=== PATIENT | female | born 1955 | race Caucasian/White ===

== ENCOUNTER 2024-11-11 05:12 | Day surgery (SDC) | payer OTHER ==
[2024-11-04 08:56] VITALS: BP 140/82
[2024-11-04 09:10] LABS: URINE APPEARANCE Clear; URINE BILIRRUBIN Negative (NEGATIVE); URINE BLOOD Negative; URINE COLOR Yellow; URINE GLUCOSE Negative (NEGATIVE); URINE KETONE Trace (NEGATIVE); URINE LEUKOCYTE Trace; URINE NITRATE Negative; URINE PROTEIN Negative (NEGATIVE); URINE UROBILINOGEN 1.0 E.U./dl
[2024-11-04 09:11] LABS: URINE BACTERIA 78.3 uL (0.0-1933); URINE EPITHELIAL CELLS 15.9 uL (0.0-38.8); URINE WBC 8.7 uL (0.0-23.2)
[2024-11-04 09:18] LABS: BASO % 0.5 % (0.1-1.2); EOS # 0.25 (0.04-0.54); EOS % 3.9 % (0.7-7.0); LYMPH # 2.11 (1.18-3.74); LYMPH % 33.3 % (19.3-53.1); MEAN PLATELET VOLUME 10.10 fl (9.4-12.4); MONO # 0.51 (0.24-0.82); MONO % 8.0 % (4.7-12.5); NEUT # 3.43 (1.56-6.13); NEUT % 54.1 % (34.0-71.1); RED CELL DISTRIBUTION WIDTH 14.2 % (11.6-14.4)
[2024-11-04 09:24] LABS: URINE CAST 0.14 uL (0.0-1.40); URINE RBC 1.7 uL (0.0-20.8)
[2024-11-04 09:34] LABS: INR 1.01
[2024-11-04 09:59] LABS: ALT/SGPT 24.0 U/L (12-78); AST/SGOT 17.0 U/L (15-37); BILIRUBIN TOTAL 0.76 mg/dL (0.3-1.2); BUN CREA RATIO 22.0 (7.0-25.0); CREATININE SERUM 0.73 mg/dL (0.55-1.02); GFR 79.52; GLOBULINA 3.0 G/DL (2.4-3.5); GLUCOSE FASTING 99.0 mg/dL (65-100); OSMOLALITY SERUM 294.0 MOSM/KG (275-295)
[~2024-11-11] VITALS: Ht 154.9 cm; Wt 65.8 kg
[~2024-11-11 05:12] MED LIST: COZAAR25 MG PO; DEXILANT60 MG PO; ECOTRIN81 MG; PEPCID40 MG PO; PRESERVISION A1 EAC1 PO; SIMVASTATIN80 MG; TOPROL XL50 M1 PO
[2024-11-11] MEDS ORDERED: MEPERIDINE HCL/PF 25 MG/ML VIAL IM PRN (08:30)
[2024-11-11] MEDS ORDERED: PROMETHAZINE HCL 25 MG/ML AMPUL IM PRN (08:30)
[2024-11-11] MEDS ORDERED: DUI500 PO (08:33)
[2024-11-11] MEDS ORDERED: TRAM1TAB98 PO (08:34)
[2024-11-11] MEDS ORDERED: CEFADROXIL 500 MG CAPSULE PO SCH (09:00)
== END 2024-11-11 12:45 | disposition home or self-care (01) ==
LOC: CIR.AMB 05:12
PROVIDERS: ATTEND Orthopaedic Surgery Sports Medicine
DX: M23.221 Derangement of posterior horn of medial meniscus due to old tear or injury, right knee (principal); M23.251 Derangement of posterior horn of lateral meniscus due to old tear or injury, right knee; M17.11 Unilateral primary osteoarthritis, right knee